=== PATIENT | male | born 1945 | race Caucasian/White ===

== ENCOUNTER 2018-05-12 09:21 | Inpatient (IN) | payer BC ==
[~2018-05-12] VITALS: Ht 182.9 cm; Wt 93.7 kg
[~2018-05-12 09:21] MED LIST: ASCO500T11 PO; B-COTAB59 OR; BENA20TA14 PO; CARV12.544 PO; CHOL1000 PO; DIGO0.1262 PO; FAMO-12 PO; NAP500T PO; SERT-274 PO; SIMV10TA84 PO; TRAM50TA2 PO; TRAZ50TA2 PO
[2018-05-12] MEDS ORDERED: ACETAMINOPHEN IV 1000 MG/100ML (10MG/ML) IV ONE (10:15)
[2018-05-12] MEDS ORDERED: ceFAZolin 1GM 2 GM in D5W 5% 100 ML IV ONE (10:15)
[2018-05-12] MEDS ORDERED: PREGABALIN CAPSULE 75 MG CAP PO ONE (10:15)
[2018-05-12] MEDS ORDERED: CELECOXIB 100 MG CAP PO ONE (10:15)
[2018-05-12] MEDS ORDERED: ceFAZolin 1GM/50ML 100 ML IV ONE (10:42)
[2018-05-12] MEDS ORDERED: NEOSTIGMINE 1 MG/ML INJ (10mg/10ML VIAL) IV ONE (11:42)
[2018-05-12] MEDS ORDERED: GLYCOPYRROLATE 0.2 MG/ML 1ML VIAL IV ONE (11:42)
[2018-05-12] MEDS ORDERED: HYDROCORTISONE SOD SUCC 100 MG/2ML INJ VIAL IV ONE ×2 (11:42→13:45)
[2018-05-12] MEDS ORDERED: TRANEXAMIC ACID 10 ML ONE ×2 (11:58→12:17)
[2018-05-12] MEDS ORDERED: BUPIVACAINE W/ EPINEPH 0.25% INJ 50ML MDV ONE (11:58)
[2018-05-12] MEDS ORDERED: BUPIVACAINE HCL 0.25% P/F 10 ML VIAL ONE (11:58)
[2018-05-12] MEDS ORDERED: KETOROLAC TROMETH 30 MG/ML 1ML VIAL ONE (12:01)
[2018-05-12] MEDS ORDERED: VANCOMYCIN HCL 1000 MG VL ONE ×2 (12:02→12:16)
[2018-05-12] MEDS ORDERED: MORPHINE SULF(PF) 0.5MG/ML 10ML VIAL ONE (12:04)
[2018-05-12] MEDS ORDERED: fentaNYL CITRATE 100 MCG/2 ML VL ONE (12:31)
[2018-05-12] MEDS ORDERED: MIDAZOLAM HCL 1MG/1ML-2 ML VIAL ONE (12:31)
[2018-05-12] MEDS ORDERED: PROPOFOL 10 MG/ML 20 ML IV ONE (12:33)
[2018-05-12] MEDS ORDERED: ROCURONIUM 10MG/ML 10ML VIAL IV ONE (12:34)
[2018-05-12] MEDS ORDERED: HYDROmorphone HCL 2 MG/ML VL ONE (15:13)
[2018-05-12] MEDS: LACTATED RINGER'S 1,000 ML IV SCH (15:27)
[2018-05-12] MEDS ORDERED: ACETAMINOPHEN 325 MG TAB PO PRN (15:30)
[2018-05-12] MEDS ORDERED: ONDANSETRON HCL 4 MG/2 ML VIAL IV PRN (15:30)
[2018-05-12] MEDS ORDERED: ePHEDrine SULFATE 50 MG/ML AMP IV PRN (15:30)
[2018-05-12] MEDS ORDERED: NITROGLYCERIN 0.4 MG SL TAB SL PRN (15:30)
[2018-05-12] MEDS ORDERED: BISACODYL 5 MG EC TAB PO PRN (15:30)
[2018-05-12] MEDS ORDERED: hydrALAZINE HCL 20 MG/ML VL IV PRN (15:30)
[2018-05-12] MEDS ORDERED: MORPHINE SULF INJ 2 MG/ML SYRINGE 1ML IV PRN (15:30)
[2018-05-12] MEDS ORDERED: ONDANSETRON HCL 4 MG/2 ML VIAL IV ONE (15:30)
[2018-05-12] MEDS ORDERED: traMADol HCL 50 MG TAB PO PRN (15:30)
[2018-05-12] MEDS: HYDROmorphone HCL 2 MG/ML VL IV PRN ×3 (15:45→16:13)
[2018-05-12] MEDS: ACCU-CHEK COMFORT CURVE STRIP VI SCH ×2 (17:00→23:09)
[2018-05-12 17:30] VITALS: BP 121/75
[2018-05-12] MEDS: ceFAZolin 1GM 2 GM in D5W 5% 100 ML IV SCH (19:14)
[2018-05-12 22:00] VITALS: BP 127/65
[2018-05-12] MEDS: CARVEDILOL 12.5 MG TAB PO SCH (22:00)
[2018-05-12] MEDS: DOCUSATE SOD 100 MG CAP PO SCH (22:00)
[2018-05-12] MEDS: KETOROLAC TROMETH 30 MG/ML 1ML VIAL IV SCH (22:01)
[2018-05-12] MEDS: PRAVASTATIN SODIUM 20 MG TAB PO SCH (22:02)
[2018-05-12] MEDS: traZODone HCL 50 MG TAB PO SCH (22:02)
[2018-05-12] MEDS: BENAZEPRIL HCL 10 MG TAB PO SCH (22:02)
[2018-05-13] MEDS: ceFAZolin 1GM 2 GM in D5W 5% 100 ML IV SCH ×2 (01:02→10:00)
[2018-05-13 05:00] VITALS: BP 145/68
[2018-05-13] MEDS: LACTATED RINGER'S 1,000 ML IV SCH ×3 (05:38→21:27)
[2018-05-13] MEDS: ACCU-CHEK COMFORT CURVE STRIP VI SCH ×4 (06:35→21:35)
[2018-05-13] MEDS: KETOROLAC TROMETH 30 MG/ML 1ML VIAL IV SCH ×3 (06:35→21:33)
[2018-05-13 07:22] LABS: Hematocrit 33.2 % (41.0-53.0); Hemoglobin 11.6 g/dL (13.5-17.5)
[2018-05-13 07:27] LABS: Albumin 2.8 g/dL (3.4-5.0); Bilirubin, Total 0.9 mg/dL (0.2-1.0); Calcium 7.5 mg/dL (8.5-10.1); Total Protein 5.9 g/dL (6.4-8.2)
[2018-05-13 09:00] VITALS: BP 105/71
[2018-05-13] MEDS ORDERED: DIGOXIN 0.125 MG TAB PO SCH (10:00)
[2018-05-13] MEDS: ASCORBIC ACID 500 MG TAB PO SCH (10:00)
[2018-05-13] MEDS: B-COMPLEX W/ C & FOLIC ACID(NEPHROVITE TAB) PO SCH (10:00)
[2018-05-13] MEDS: MORPHINE SULF INJ 2 MG/ML SYRINGE 1ML IV PRN ×2 (10:38→19:01)
[2018-05-13] MEDS: FAMOTIDINE 20 MG TAB PO SCH (10:50)
[2018-05-13] MEDS: CARVEDILOL 12.5 MG TAB PO SCH ×2 (10:50→21:34)
[2018-05-13] MEDS: DOCUSATE SOD 100 MG CAP PO SCH ×2 (10:51→21:34)
[2018-05-13] MEDS: SERTRALINE HCL 50 MG TAB PO SCH (10:51)
[2018-05-13] MEDS: CHOLECALCIFEROL (VITD3) 1,000 UNIT TAB PO SCH (10:52)
[2018-05-13] MEDS: Ensure Enlive Chocolate 8oz Bottle PO SCH ×2 (12:00→18:01)
[2018-05-13 13:00] VITALS: BP 105/61
[2018-05-13 17:00] VITALS: BP 102/63
[2018-05-13] MEDS: BENAZEPRIL HCL 10 MG TAB PO SCH (21:34)
[2018-05-13] MEDS: traZODone HCL 50 MG TAB PO SCH (21:34)
[2018-05-13] MEDS: PRAVASTATIN SODIUM 20 MG TAB PO SCH (21:34)
[2018-05-13 21:54] VITALS: BP 100/50
[2018-05-13] MEDS ORDERED: ALBUTEROL SULF 2.5 MG/0.5ML(0.5%) NEB SOLN NEB PRN (22:30)
[2018-05-14] MEDS: OXYCODONE W/ ACETAMINOPHEN 5/325MG TABLET PO PRN ×2 (04:08→19:56)
[2018-05-14 05:07] VITALS: BP 105/61
[2018-05-14] MEDS: KETOROLAC TROMETH 30 MG/ML 1ML VIAL IV SCH ×2 (06:34→14:00)
[2018-05-14] MEDS: ACCU-CHEK COMFORT CURVE STRIP VI SCH ×4 (06:34→22:07)
[2018-05-14] MEDS: LACTATED RINGER'S 1,000 ML IV SCH ×2 (07:27→17:27)
[2018-05-14 07:55] VITALS: BP 108/67
[2018-05-14] MEDS: Ensure Enlive Chocolate 8oz Bottle PO SCH ×3 (08:00→18:15)
[2018-05-14 08:21] LABS: Hematocrit 28.2 % (41.0-53.0); Hemoglobin 9.9 g/dL (13.5-17.5)
[2018-05-14] MEDS: RIVAROXABAN 10 MG TAB PO SCH (10:00)
[2018-05-14] MEDS: B-COMPLEX W/ C & FOLIC ACID(NEPHROVITE TAB) PO SCH (10:17)
[2018-05-14] MEDS: DOCUSATE SOD 100 MG CAP PO SCH ×2 (10:19→22:00)
[2018-05-14] MEDS: ASCORBIC ACID 500 MG TAB PO SCH (10:20)
[2018-05-14] MEDS: SERTRALINE HCL 50 MG TAB PO SCH (10:20)
[2018-05-14] MEDS: FAMOTIDINE 20 MG TAB PO SCH (10:21)
[2018-05-14] MEDS: CARVEDILOL 12.5 MG TAB PO SCH ×2 (10:22→22:00)
[2018-05-14] MEDS: CHOLECALCIFEROL (VITD3) 1,000 UNIT TAB PO SCH (10:23)
[2018-05-14 10:56] VITALS: BP 105/61
[2018-05-14 12:19] VITALS: BP 112/65
[2018-05-14 17:26] VITALS: BP 106/62
[2018-05-14 22:00] VITALS: BP 138/76
[2018-05-14] MEDS: BENAZEPRIL HCL 10 MG TAB PO SCH (22:06)
[2018-05-14] MEDS: traZODone HCL 50 MG TAB PO SCH (22:06)
[2018-05-14] MEDS: PRAVASTATIN SODIUM 20 MG TAB PO SCH (22:07)
[2018-05-15] MEDS: OXYCODONE W/ ACETAMINOPHEN 5/325MG TABLET PO PRN ×3 (03:15→15:30)
[2018-05-15] MEDS: LACTATED RINGER'S 1,000 ML IV SCH ×2 (03:27→13:27)
[2018-05-15 05:00] VITALS: BP 118/61
[2018-05-15] MEDS: ACCU-CHEK COMFORT CURVE STRIP VI SCH ×3 (06:43→15:28)
[2018-05-15] MEDS: Ensure Enlive Chocolate 8oz Bottle PO SCH ×2 (08:00→12:00)
[2018-05-15 08:20] LABS: Hematocrit 27.1 % (41.0-53.0); Hemoglobin 9.8 g/dL (13.5-17.5)
[2018-05-15 08:44] VITALS: BP 121/61
[2018-05-15 08:56] VITALS: BP 138/76
[2018-05-15] MEDS: RIVAROXABAN 10 MG TAB PO SCH (09:57)
[2018-05-15] MEDS: ASCORBIC ACID 500 MG TAB PO SCH (09:57)
[2018-05-15] MEDS: DOCUSATE SOD 100 MG CAP PO SCH (09:58)
[2018-05-15] MEDS: SERTRALINE HCL 50 MG TAB PO SCH (09:58)
[2018-05-15] MEDS: FAMOTIDINE 20 MG TAB PO SCH (09:59)
[2018-05-15] MEDS: B-COMPLEX W/ C & FOLIC ACID(NEPHROVITE TAB) PO SCH (09:59)
[2018-05-15] MEDS: CHOLECALCIFEROL (VITD3) 1,000 UNIT TAB PO SCH (10:00)
[2018-05-15] MEDS: CARVEDILOL 12.5 MG TAB PO SCH (10:00)
[2018-05-15 12:30] VITALS: BP 125/75
== END 2018-05-15 16:50 | disposition home health service (06) | DRG 470 ==
LOC: SUR 09:21 → TELE-EAST 09:22
PROVIDERS: ADMIT Orthopaedic Surgery Adult Reconstructive Orthopaedic Surgery; ATTEND Orthopaedic Surgery Adult Reconstructive Orthopaedic Surgery
PROC: 8E0YXBZ Computer Assisted Procedure of Lower Extremity (ICD-10-PCS; 2018-05-12)
PROC: 0SR906Z Replacement of Right Hip Joint with Oxidized Zirconium on Polyethylene Synthetic Substitute, Open Approach (ICD-10-PCS; principal; 2018-05-12 12:25)
DX: M16.11 Unilateral primary osteoarthritis, right hip (principal); Z88.1 Allergy status to other antibiotic agents; I10 Essential (primary) hypertension; I48.91 Unspecified atrial fibrillation; I20.9 Angina pectoris, unspecified
CPT/HCPCS: 36415; 72170; 73501; 80053; 82962; 85014; 85018; 97116; A4565; C1713; C1776; J0131; J0690; J1885; J2250; J2405; J2704; J3490; J7060